=== PATIENT | female | born 1985 | race Caucasian/White ===

== ENCOUNTER 2016-08-22 21:48 | Emergency (ER) | payer SELFPAY ==
[2016-08-22 22:28] VITALS: BMI 25.2
[2016-08-22 22:57] LABS: AUTOMATED BASOPHIL 0.7 % (0-2); AUTOMATED EOSINOPHIL 2.2 % (0-5); AUTOMATED LYMPH 18.9 % (17-44); AUTOMATED MONOCYTE 5.7 % (3-10); AUTOMATED NEUTROPHIL 72.5 % (45-76); MPV 9.3 fL (7.4-10.4)
[2016-08-22 23:08] LABS: BLOOD UREA NITROGEN 12 MG/DL (7-17); CALCIUM 9.4 MG/DL (8.4-10.2); CALCULATED OSMOLALITY 269 MOs/Kg (270-290); CHLORIDE 105 mEq/L (98-107); GLUCOSE 102 MG/DL (70-99); SODIUM LEVEL 140 mEq/L (137-146); TOTAL PROTEIN 8.2 G/DL (6.3-8.2)
[2016-08-23 02:21] LABS: AMORPHOUS 1+; LEUKOCYTES/URINE 2+ (NEGATIVE); RBC/URINE 30-40 (0-5); URINE OCCULT BLOOD 3+ (NEG/TRACE); WBC/URINE 30-40 (0-5)
[2016-08-23 02:22] VITALS: TEMP 98.7
[2016-08-23 02:22] LABS: NITRITE/URINE POS (NEGATIVE)
[2016-08-23] MEDS ORDERED: MORPHINE 4 MG/ML INJECTION IV ONE (02:23)
[2016-08-23] MEDS ORDERED: NS 1,000 ML IV ONE (02:23)
[2016-08-23] MEDS ORDERED: ONDANSETRON HCL 4 MG/2 ML VIAL IV ONE (02:23)
[2016-08-23] MEDS ORDERED: CEFTRIAXONE 1 GM in D5W 100 ML IV ONE (02:23)
--- NOTE | 2016-08-23 03:08 | EDPRACDOC ---
- General Information Chief Complaint: Abdominal Pain Stated Complaint: PAIN RT LOWER ABD NO VOMITING Time Seen by Provider: 08/23/16 02:07 Information Source: Patient Mode Of Arrival: Car Home Medications: Home Medications Ondansetron [Zofran Odt] 4 mg PO Q6H PRN #20 tab.rapdis 08/23/16 Oxycodone Immediate Release [Oxycodone Immediate Release (OxyIR)] 5 mg PO Q6H PRN #30 tab 08/23/16 Sulfamethoxazole/Trimethoprim [Bactrim Ds Tablet] 1 tab PO BID #14 tab 08/23/16 Allergies/Adverse Reactions: Allergies Allergy/AdvReac Type Severity Reaction Status Date / Time azithromycin [From Zithromax] Allergy Hives* Verified 08/22/16 22:28 - History of Present Illness Onset: 4 DAYS HPI: PT PRESENTS WITH RLQ AND RIGHT FLANK PAIN THAT SHE STATES BEGAN EARLIER TODAY. PT STATES SHE HAS HAD NAUSEA WITHOUT VOMITING. Pain Location: Reports: RLQ, Flank (RIGHT) Pain Context: Reports: Spontaneous Pain Severity: Moderate Pain Quality: Reports: Sharp, Stabbing Pain Radiation: Reports: No Radiation Last Menstrual Period: 08/02/15 : No Adult Abdominal History: Denies: Abdominal Surgery, Urolithiasis, Bowel Obstruction, Similar Pain (dx) Female Abdominal History: Denies: Abdominal Surgery, UTI, Ectopic, PID, Urolithiasis, Similar Pain (dx) Modifying Factors: improves with: Nothing Female Associated Signs & Symptoms: Reports: Nausea Oral Intake: Decreased Urinary Output: Normal ED Past Medical History - History Reviewed Yes Nurses notes reviewed and agree except as marked - Patient Medical History Respiratory History: Reports: Asthma Psychological History: Reports: Depression Surgical History: Reports: Cholecystectomy - Social Medical History Smoking Status: Heavy tobacco smoker (5 or more cigarettes/day or daily pipe/ cigar) EDM Review of Systems - Review of Systems ROS Negative Except as Marked: Yes All systems reviewed and were negative except as marked - Physical Exam Constitutional: Alert (PT APPEARS UNCOMFORTABLE) Oriented to: Time, Person, Place Last recorded Vital Signs: Last Vital Signs Temp 98.7 F 08/23/16 02:19 Pulse 95 08/23/16 02:19 Resp 18 08/23/16 02:19 BP 115/64 08/23/16 02:19 Pulse Ox 99 08/23/16 02:19 Oxygen Pulse Oxygen Saturation 99 O2 Device Room Air Oxygen Flow Rate Fraction of Inspired Oxygen ( FIO2) - HEENT Head: Normal ( normocephalic) Eye Exam: Normal (PERRL, EOMI, Sclera white) Oropharynx: Normal (Pharynx:Moist without exudate,Gums-no swelling) Nose: No Symptoms Reported (septum midline) Neck: Normal (FROM, trachea at midline) - Respiratory/Cardiovascular Respiratory: Normal - CTA (BBS clear to auscultation without adventitious sounds ) Cardiovascular: Tachycardia - GI Auscultation: Normal (NABS) Palpation: Normal (Soft,No rebound or guarding, non distended) Tenderness: Moderate, RLQ, Other (RIGHT FLANK) Stephenson's Sign: Negative Rectal Exam: Deferred - Musculoskeletal Back: Normal (Non-Tender) Extremities: Normal (Normal tone, Pulses 2+ No cyanosis or edema, FROM) - Integumentary Skin: Normal, Warm, Dry Lymphatics: Normal (no adenopathy) - Neurologic Memory Impaired: Normal Motor Function: Normal (Normal tone, Pulses 2+ No cyanosis or edema, FROM) Cranial Nerve: Normal (CN II-X11 intact sensation, strength 5/5) Cerebellar: Normal Mood Description: Normal Perception: Normal - Differential Diagnosis UTI, Other - Results All Results Reviewed and Normal except as Highlighted below: Yes 08/22/16 22:47 08/22/16 22:47 WBC 14.6 xk/uL (3.8-10.8) H 08/22/16 22:47 RBC 4.25 xM/uL (4.20-5.40) 08/22/16 22:47 Hgb 13.1 g/dL (12.0-16.0) 08/22/16 22:47 Hct 39.2 % (36-47) 08/22/16 22:47 MCV 92 fL (81-99) 08/22/16 22:47 MCH 30.9 pg (27-32) 08/22/16 22:47 MCHC 33.5 g/dl (33-36) 08/22/16 22:47 RDW 13.4 % (11.5-14.5) 08/22/16 22:47 Plt Count 202 xk/uL (130-400) 08/22/16 22:47 MPV 9.3 fL (7.4-10.4) 08/22/16 22:47 Neut % (Auto) 72.5 % (45-76) 08/22/16 22:47 Lymph % (Auto) 18.9 % (17-44) 08/22/16 22:47 [place] % (Auto) 5.7 % (3-10) 08/22/16 22:47 Eos % (Auto) 2.2 % (0-5) 08/22/16 22:47 Baso % (Auto) 0.7 % (0-2) 08/22/16 22:47 Absolute Neuts (auto) 10.51 xk/uL (1.7-8.2) H 08/22/16 22:47 Absolute Lymphs (auto) 2.63 xk/uL (0.65-4.75) 08/22/16 22:47 Sodium 140 mEq/L (137-146) 08/22/16 22:47 Potassium 3.8 mEq/L (3.5-5.1) 08/22/16 22:47 Chloride 105 mEq/L (98-107) 08/22/16 22:47 Carbon Dioxide 23 mMOL/L (22-33) 08/22/16 22:47 Anion Gap 16 mEq/L (8-16) 08/22/16 22:47 BUN 12 MG/DL (7-17) 08/22/16 22:47 Creatinine 0.60 MG/DL (0.52-1.04) 08/22/16 22:47 Estimated GFR (MDRD) > 60 mL/min (>=60) 08/22/16 22:47 Glucose 102 MG/DL (70-99) H 08/22/16 22:47 Calculated Osmolality 269 MOs/Kg (270-290) L 08/22/16 22:47 Calcium 9.4 MG/DL (8.4-10.2) 08/22/16 22:47 Total Bilirubin 0.2 MG/DL (0.2-1.3) 08/22/16 22:47 AST 21 IU/L (14-36) 08/22/16 22:47 ALT 19 IU/L (9-52) 08/22/16 22:47 Alkaline Phosphatase 66 IU/L (38-126) 08/22/16 22:47 Total Protein 8.2 G/DL (6.3-8.2) 08/22/16 22:47 Albumin 4.2 G/DL (3.5-5.0) 08/22/16 22:47 Urine Color Yellow 08/23/16 02:09 Urine Clarity Cldy 08/23/16 02:09 Urine pH 6.0 (5.0-8.0) 08/23/16 02:09 Ur Specific [place] 1.010 (1.003-1.035) 08/23/16 02:09 Urine Protein Trace (NEG/TRACE) 08/23/16 02:09 Urine Glucose (UA) Neg (NEGATIVE) 08/23/16 02:09 Urine Ketones Neg (NEGATIVE) 08/23/16 02:09 Urine Occult Blood 3+ (NEG/TRACE) H 08/23/16 02:09 Urine Nitrite Pos (NEGATIVE) H 08/23/16 02:09 Urine Bilirubin Neg (NEGATIVE) 08/23/16 02:09 Urine Urobilinogen 0.2 MG/DL (0-1) 08/23/16 02:09 Ur Leukocyte Esterase 2+ (NEGATIVE) H 08/23/16 02:09 Urine RBC 30-40 (0-5) H 08/23/16 02:09 Urine WBC 30-40 (0-5) H 08/23/16 02:09 Ur Epithelial Cells 3+ 08/23/16 02:09 Amorphous Sediment 1+ 08/23/16 02:09 Urine Bacteria Few (NEG/FEW) 08/23/16 02:09 Urine Mucus Occ (NEG/OCC) 08/23/16 02:09 Urine Test Neg (NEGATIVE) 08/23/16 02:09 Lab Results 08/23/16 08/23/16 08/22/16 02:09 02:09 22:47 WBC 14.6 H RBC 4.25 Hgb 13.1 Hct 39.2 MCV 92 MCH 30.9 MCHC 33.5 RDW 13.4 Plt Count 202 MPV 9.3 Neut % (Auto) 72.5 Lymph % (Auto) 18.9 [place] % (Auto) 5.7 Eos % (Auto) 2.2 Baso % (Auto) 0.7 Absolute Neuts (auto) 10.51 H Absolute Lymphs (auto) 2.63 Sodium Potassium Chloride Carbon Dioxide Anion Gap BUN Creatinine Estimated GFR (MDRD) Glucose Calculated Osmolality Calcium Total Bilirubin AST ALT Alkaline Phosphatase Total Protein Albumin Urine Color Yellow Urine Clarity Cldy Urine pH 6.0 Ur Specific [place] 1.010 Urine Protein Trace Urine Glucose (UA) Neg Urine Ketones Neg Urine Occult Blood 3+ H Urine Nitrite Pos H Urine Bilirubin Neg Urine Urobilinogen 0.2 Ur Leukocyte Esterase 2+ H Urine RBC 30-40 H Urine WBC 30-40 H Ur Epithelial Cells 3+ Amorphous Sediment 1+ Urine Bacteria Few Urine Mucus Occ Urine Test Neg 08/22/16 22:47 WBC RBC Hgb Hct MCV MCH MCHC RDW Plt Count MPV Neut % (Auto) Lymph % (Auto) [place] % (Auto) Eos % (Auto) Baso % (Auto) Absolute Neuts (auto) Absolute Lymphs (auto) Sodium 140 Potassium 3.8 Chloride 105 Carbon Dioxide 23 Anion Gap 16 BUN 12 Creatinine 0.60 Estimated GFR (MDRD) > 60 Glucose 102 H Calculated Osmolality 269 L Calcium 9.4 Total Bilirubin 0.2 AST 21 ALT 19 Alkaline Phosphatase 66 Total Protein 8.2 Albumin 4.2 Urine Color Urine Clarity Urine pH Ur Specific [place] Urine Protein Urine Glucose (UA) Urine Ketones Urine Occult Blood Urine Nitrite Urine Bilirubin Urine Urobilinogen Ur Leukocyte Esterase Urine RBC Urine WBC Ur Epithelial Cells Amorphous Sediment Urine Bacteria Urine Mucus Urine Test Decision Time to Discharge: 03:37 - Departure Disposition: Home Condition: Stable Final Diagnosis: Pyelonephritis UTI (urinary tract infection) Qualifiers: Urinary tract infection type: acute cystitis Hematuria presence: with hematuria Qualified Code(s): N30.01 - Acute cystitis with hematuria Instructions: Urinary Tract Infection in Women (ED), Dysuria, Acute Pyelonephritis (ED) Education/Counseling Given To: Patient Education/Counseling Given Regarding: Diagnosis, Treatment, Prognosis, Follow Up Referrals: Nazario Escobar MD [Staff Physician] - One Week Prescriptions: Ondansetron [Zofran Odt] 4 mg PO Q6H PRN #20 tab.rapdis PRN Reason: Nausea/Vomiting Oxycodone Immediate Release [Oxycodone Immediate Release (OxyIR)] 5 mg PO Q6H PRN #30 tab PRN Reason: Pain Sulfamethoxazole/Trimethoprim [Bactrim Ds Tablet] 1 tab PO BID #14 tab Additional Instructions: INCREASE FLUID INTAKE. FOLLOW UP WITH PRIMARY CARE PROVIDER NEXT WEEK. TAKE ALL ANTIBIOTICS PRESCRIBED. RETURN TO THE ED FOR WORSENING SYMPTOMS OR CONCERNS.
--- NOTE | 2016-08-23 03:24 | DIRPT ---
CLINICAL DATA: Acute onset of right flank pain and right lower quadrant abdominal pain for 4 days. Nausea, dysuria and fever. Leukocytosis. Hematuria. Initial encounter. EXAM: CT ABDOMEN AND PELVIS WITHOUT CONTRAST TECHNIQUE: Multidetector CT imaging of the abdomen and pelvis was performed following the standard protocol without IV contrast. COMPARISON: CT of the abdomen and pelvis performed 03/06/2012 FINDINGS: The visualized lung bases are clear. The liver and spleen are unremarkable in appearance. The patient is status post cholecystectomy, with clips noted at the gallbladder fossa. The pancreas and adrenal glands are unremarkable. There is stranding about the right renal pelvis and right ureter, with mild ureteral wall thickening, concerning for right-sided ureteritis. Mild underlying right-sided pyelonephritis cannot be excluded. The left kidney is unremarkable in appearance. There is no evidence of hydronephrosis. No renal or ureteral stones are identified. No free fluid is identified. The small bowel is unremarkable in appearance. The stomach is within normal limits. No acute vascular abnormalities are seen. The appendix is normal in caliber, without evidence of appendicitis. The colon is unremarkable in appearance. The bladder is mildly distended grossly remarkable. The uterus is unremarkable in appearance. The ovaries are grossly symmetric. No suspicious adnexal masses are seen. No inguinal lymphadenopathy is seen. No acute osseous abnormalities are identified. IMPRESSION: 1. Stranding about the right renal pelvis and right ureter, with mild ureteral wall thickening, concerning for right-sided ureteritis. Mild underlying right-sided pyelonephritis cannot be excluded. 2. No evidence of hydronephrosis. Electronically Signed By: Paul Ortez M.D. On: 08/23/2016 03:22
[2016-08-23] MEDS ORDERED: HYDROmorphone 1 MG INJECTION IV ONE (03:42)
[2016-08-23 04:01] VITALS: BP 119/57; PULSE 93
== END 2016-08-23 04:08 | disposition home or self-care (01) ==
LOC: ED 21:48
DX: N12 Tubulo-interstitial nephritis, not specified as acute or chronic (principal)
CPT/HCPCS: 36415; 74176; 80053; 81001; 81025; 85025; 96361; 96365; 96375; 99283; J0696; J1170; J2270; J2405; J7060